=== PATIENT | male | born 1950 | race Two or more races ===

== ENCOUNTER 2020-09-02 | Inpatient (IN) | payer OTHER ==
[~2020-09-02] VITALS: Ht 182.9 cm; Wt 86.2 kg
--- NOTE | 2020-09-02 00:17 | NUR ---
PT CAME FROM HOME FOR A POSSIBLE SEIZURE WITNESSED BY IN BED. PT AAOX3, RESPIRATIONS EVEN AND UNLABORED W/ NAD NOTED. 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 SEIZURE PRECAUTIONS IN PLACE FOR SAFETY. IV LINE ESTABLISHED. BLOOD COLLECTED AND SENT TO LAB
--- NOTE | 2020-09-02 00:19 | NUR ---
EKG AT BEDSIDE
[2020-09-02 00:24] LABS: BASOPHILS # (AUTO) 0.1 /CMM (0.0-0.2); BASOPHILS % (AUTO) 0.9 % (0.0-2.0); EOSINOPHILS % (AUTO) 4.3 % (0.0-6.0); HEMATOCRIT 37 % (39-51); HEMOGLOBIN 12.8 g/dL (13.5-17.5); LYMPHOCYTES # (AUTO) 3.5 /CMM (0.8-4.8); LYMPHOCYTES % (AUTO) 35.5 % (20.0-44.0); MEAN CORPUSCULAR HGB CONC 34 g/dl (31.0-36.0); MEAN CORPUSCULAR VOLUME 92 fL (80-96); MONOCYTES % (AUTO) 9.9 % (2.0-12.0); NEUTROPHILS # (AUTO) 4.9 /CMM (1.8-8.9); NEUTROPHILS % (AUTO) 49.4 % (43.0-81.0); PLATELET COUNT (AUTO) 240 /CMM (150-450); RED BLOOD CELL COUNT(AUTO) 4.05 MIL/uL (4.5-6.0)
[2020-09-02] MEDS ORDERED: IV NS 0.9% 500 ML BAG IV ONE (00:30)
--- NOTE | 2020-09-02 00:45 | NUR ---
PT TAKEN TO RADIOLOGY FOR CT
--- NOTE | 2020-09-02 00:50 | NUR ---
PT BACK FROM RADIOLOGY
[2020-09-02 01:10] LABS: CALCIUM, SERUM 9.1 mg/dL (8.5-10.1); CARBON DIOXIDE 22 mmol/L (21-32); CHLORIDE 99 mmol/L (98-107); CREATININE 1.2 mg/dL (0.6-1.3); GLUCOSE 116 mg/dL (74-106); POTASSIUM 3.7 mmol/L (3.5-5.1); SODIUM SERUM 136 mmol/L (136-145); UREA NITROGEN, BLOOD 19 mg/dL (7-18)
[2020-09-02 01:15] LABS: ALANINE AMINOTRANSFERASE 23 U/L (12-78); ALBUMIN 4.1 g/dL (3.4-5.0); ALCOHOL, BLOOD < 3 mg/dL (0-0); ALKALINE PHOSPHATASE 83 U/L (46-116); ASPARTATE AMINOTRANSFERASE 26 U/L (15-37); BILIRUBIN,DIRECT 0.2 mg/dL (0.0-0.2); BILIRUBIN,TOTAL 0.9 mg/dL (0.2-1.0); TOTAL PROTEIN, SERUM 7.8 g/dL (6.4-8.2)
--- NOTE | 2020-09-02 01:30 | NUR ---
COVID NEGATIVE PER LAB
--- NOTE | 2020-09-02 02:22 | NUR ---
tele [phone]
[2020-09-02] MEDS ORDERED: MAGNESIUM HYDROXIDE 30 ML UDC PO PRN (02:30)
[2020-09-02] MEDS ORDERED: Z GUARD REMEDY 2 OZ OINT TP PRN (02:30)
[2020-09-02] MEDS ORDERED: LEVETIRACETAM (500MG) 500 MG in IV NS 0.9% 100 ML IV SCH ×2 (02:30→16:00)
[2020-09-02] MEDS ORDERED: LEVETIRACETAM (500MG) 1,000 MG in IV NS 0.9% 100 ML IV SCH (02:30)
[2020-09-02] MEDS ORDERED: ONDANSETRON HCL/PF 4 MG/2 ML VIAL IVP PRN (02:30)
[2020-09-02] MEDS ORDERED: MAG HYDROX/AL HYDROX/SIMETH 30 ML UDC PO PRN (02:30)
[2020-09-02] MEDS ORDERED: hydrALAZINE HCL IV 20 MG VIAL IV PRN (02:30)
[2020-09-02] MEDS ORDERED: LORAZEPAM INJ 2 MG/ML VIAL IV PRN (02:30)
--- NOTE | 2020-09-02 02:33 | NUR ---
REPORT GIVEN TO KATI ON FIRST FLOOR
[2020-09-02 02:55] LABS: BILIRUBIN,URINE NEGATIVE (NEGATIVE); COLOR,URINE YELLOW (YELLOW); LEUKOCYTE ESTERASE ,URINE NEGATIVE (NEGATIVE); NITRITE, URINE NEGATIVE (NEGATIVE); PROTEIN,URINE NEGATIVE (NEGATIVE); UGLUCOSE NEGATIVE (NEGATIVE); UROBILINOGEN,URINE 0.2 EU/dL (0.2)
--- NOTE | 2020-09-02 02:55 | NUR ---
ADMIT NOTE RECEIVED PATIENT FROM ER, TRANSFERRED TO ROOM 108 VIA GURNEY. ALERT AND ORIENTED X 3 WITH PERIODS OF FORGETFULNESS. ABLE TO MAKE NEEDS KNOWN. NO SOB OR ANY RESPIRATORY DISTRESS. ON ROOM AIR, O2 SAT 96%. CONNECTED TO TELE MONITOR, HR 80'S A-FIB. IV ACCESS ON LEFT AC #18, PATENT AND INTACT. SKIN IS CLEAN AND INTACT. ALL BELONGINGS CHECKED. BED LOCKED AND IN LOWEST POSITION. CALL LIGHT WITHIN REACH. SAFETY MEASURES IN PLACE. PATIENT IN BED RESTING COMFORTABLY.
--- NOTE | 2020-09-02 02:58 | NUR ---
PT TRANSFERRED TO ROOM VIA ACLS PROTCOCOL
[2020-09-02 02:59] VITALS: BP 163/76
[2020-09-02 03:00] LABS: BACTERIA,URINE None seen /HPF (None Seen); SQUAMOUS EPITHELIAL CELL,UR Rare /HPF (None Seen); URINE AMORPHOUS URATE Few /HPF (None Seen); WBC,URINE 0-2 /HPF (0-3)
[2020-09-02] MEDS: IV NS 0.9% 1,000 ML IV PRN ×2 (03:00→21:46)
--- NOTE | 2020-09-02 03:50 | NUR ---
NOTIFIED YOLANDA SERNA NEW ADMIT PATIENT AND RECEIVED CLARIFICATION ORDERS FOR HEYDI, NOTED AND CARRIED OUT. NAZ CHARGE NURSE AWARE.
[2020-09-02 04:00] VITALS: BP 108/64
[2020-09-02] MEDS ORDERED: LEVETIRACETAM (500MG) 1,000 MG in IV NS 0.9% 100 ML IV ONE (04:00)
[2020-09-02] MEDS ORDERED: LEVETIRACETAM (500MG) 500 MG/5 ML VIAL IV ONE (04:03)
[2020-09-02] MEDS ORDERED: LOSA1TAB42 PO (04:04)
[2020-09-02] MEDS ORDERED: ATOR20TA PO (04:05)
[2020-09-02] MEDS ORDERED: AMLO-212 PO (04:06)
[2020-09-02] MEDS: ACETAMINOPHEN 325 MG TABLET PO PRN ×2 (04:22→21:46)
[2020-09-02 06:26] LABS: BASOPHILS # (AUTO) 0.1 /CMM (0.0-0.2); BASOPHILS % (AUTO) 0.5 % (0.0-2.0); EOSINOPHILS % (AUTO) 0.7 % (0.0-6.0); HEMATOCRIT 34 % (39-51); HEMOGLOBIN 11.7 g/dL (13.5-17.5); LYMPHOCYTES # (AUTO) 0.9 /CMM (0.8-4.8); LYMPHOCYTES % (AUTO) 8.9 % (20.0-44.0); MEAN CORPUSCULAR HGB CONC 34 g/dl (31.0-36.0); MEAN CORPUSCULAR VOLUME 92 fL (80-96); MONOCYTES # (AUTO) 0.9 /CMM (0.1-1.30); MONOCYTES % (AUTO) 9.1 % (2.0-12.0); NEUTROPHILS # (AUTO) 8.2 /CMM (1.8-8.9); NEUTROPHILS % (AUTO) 80.8 % (43.0-81.0); PLATELET COUNT (AUTO) 218 /CMM (150-450); RED BLOOD CELL COUNT(AUTO) 3.75 MIL/uL (4.5-6.0); WHITE BLOOD COUNT (AUTO) 10.1 K/uL (4.3-11.0)
--- NOTE | 2020-09-02 06:49 | NUR ---
RN NOTE PATIENT ALERT AND ORIENTED X 3. ABLE TO MAKE NEEDS KNOWN. NO SOB OR ANY RESPIRATORY DISTRESS. ON ROOM AIR, O2 SAT 96%. ON TELE, HR 80'S. IV ACCESS ON LEFT AC #18, PATENT AND INTACT RUNNING IV NS @ 50ML/HR. BED LOCKED AND IN LOWEST POSITION. CALL LIGHT WITHIN REACH. SAFETY MEASURES IN PLACE. WILL ENDORSE TO AM SHIFT.
[2020-09-02 06:53] LABS: ALBUMIN 3.4 g/dL (3.4-5.0); BILIRUBIN,TOTAL 0.8 mg/dL (0.2-1.0); CALCIUM, SERUM 8.6 mg/dL (8.5-10.1); MAGNESIUM 2.2 mg/dL (1.8-2.4); PHOSPHORUS 3.3 mg/dL (2.5-4.9); POTASSIUM 3.9 mmol/L (3.5-5.1); TOTAL PROTEIN, SERUM 6.6 g/dL (6.4-8.2)
[2020-09-02 07:07] LABS: THYROID STIMULATING HORMONE 1.918 uIU/mL (0.358-3.74)
--- NOTE | 2020-09-02 07:30 | NUR ---
RN OPENING NOTES Patient is alert and oriented. Patient is breathing even and unlabored.No c.o pain or discomfort. Left ac 18 gauze running at 50 ml./hour. Patient is on room air saturating 97%. Bed is in lowest and locked position. Call light with in reach.
[2020-09-02] MEDS: PANTOPRAZOLE 40 MG VIAL IV SCH (08:20)
--- NOTE | 2020-09-02 09:00 | NUR ---
Informed Dr Sim regarding patient's afib on collections director and no anticoagulants ordered and Med reconciliation.
[2020-09-02 10:00] VITALS: BP 104/50
[2020-09-02 12:00] VITALS: BP 101/50
[2020-09-02] MEDS: AMLODIPINE BESYLATE 5 MG TABLET PO SCH (13:00)
[2020-09-02] MEDS: APIXABAN 5 MG TABLET PO SCH ×2 (13:39→17:19)
[2020-09-02 16:00] VITALS: BP 100/50
--- NOTE | 2020-09-02 16:50 | NUR ---
Informed Dr Sim regarding patient's heart rhythm converting from afib to sinus and bradycardic at 35 bpm at one time to 55 bpm consistently. Patient is asymptomatic and arouses easily to name. No new orders received from MD.
[2020-09-02] MEDS: METOPROLOL TARTRATE 25 MG TABLET PO SCH (18:10)
--- NOTE | 2020-09-02 19:01 | NUR ---
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 Patient is breathing even and unlabored.No c.o pain or discomfort. Left ac 18 gauze running at 50 ml /hour. Patient is on room air saturating 98%. Bed is in lowest and locked position. Call light with in reach.Will endorse to next shift for genevieve.
[2020-09-02 20:00] VITALS: BP 104/55
--- NOTE | 2020-09-02 21:33 | NUR ---
rn notes. initial assessment, received the pt rest on the bed. awake, alert. follow commands. monitor worker showing s deanna. pt on room air. sat 98%.o acute distress noted. iv lt ac 18g. ivf ns @ 50 ml/h. hob elevated. afebrile. no seizure activity noted. will continue to monitor. seizure precaution initiated
[2020-09-02] MEDS: LEVETIRACETAM (500MG) 500 MG in IV NS 0.9% 100 ML IV SCH (21:45)
--- NOTE | 2020-09-02 22:12 | NUR ---
rn note. pt c/o leg pain{ arthritis } tylenol given per md ordered
[2020-09-03] VITALS: BP 129/50
--- NOTE | 2020-09-03 00:59 | NUR ---
rn note. no changes. will continue to monitor
[2020-09-03 04:00] VITALS: BP 122/55
--- NOTE | 2020-09-03 04:14 | NUR ---
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 remaining same ivf running. a febrile. hob elevated. during shift no seizure activity noted
[2020-09-03 06:31] LABS: BASOPHILS # (AUTO) 0.1 /CMM (0.0-0.2); BASOPHILS % (AUTO) 0.9 % (0.0-2.0); EOSINOPHILS % (AUTO) 2.5 % (0.0-6.0); HEMATOCRIT 34 % (39-51); HEMOGLOBIN 11.5 g/dL (13.5-17.5); LYMPHOCYTES # (AUTO) 1.4 /CMM (0.8-4.8); LYMPHOCYTES % (AUTO) 18.6 % (20.0-44.0); MEAN CORPUSCULAR HGB CONC 34 g/dl (31.0-36.0); MEAN CORPUSCULAR VOLUME 93 fL (80-96); MONOCYTES # (AUTO) 0.9 /CMM (0.1-1.30); MONOCYTES % (AUTO) 12.6 % (2.0-12.0); NEUTROPHILS # (AUTO) 4.8 /CMM (1.8-8.9); NEUTROPHILS % (AUTO) 65.4 % (43.0-81.0); PLATELET COUNT (AUTO) 208 /CMM (150-450); RED BLOOD CELL COUNT(AUTO) 3.68 MIL/uL (4.5-6.0); WHITE BLOOD COUNT (AUTO) 7.4 K/uL (4.3-11.0)
[2020-09-03 06:58] LABS: CALCIUM, SERUM 8.6 mg/dL (8.5-10.1); CREATININE 0.9 mg/dL (0.6-1.3); MAGNESIUM 2.2 mg/dL (1.8-2.4); PHOSPHORUS 3.5 mg/dL (2.5-4.9); POTASSIUM 3.6 mmol/L (3.5-5.1)
--- NOTE | 2020-09-03 07:30 | NUR ---
RN OPENING NOTES Patient is alert and oriented. Patient is breathing even and unlabored.No c.o pain or discomfort. Left ac 18 gauze running at 50 ml./hour. Patient is on room air saturating 99%. Bed is in lowest and locked position. Call light with in reach.
[2020-09-03 08:00] VITALS: BP 102/58
[2020-09-03] MEDS: AMLODIPINE BESYLATE 5 MG TABLET PO SCH (09:00)
[2020-09-03] MEDS ORDERED: LOSARTAN POTASSIUM 50 MG TABLET PO SCH (09:00)
[2020-09-03] MEDS ORDERED: ATORVASTATIN 10 MG TABLET PO SCH (09:00)
[2020-09-03] MEDS ORDERED: HYDROCHLOROTHIAZIDE 25 MG TABLET PO SCH (09:00)
[2020-09-03] MEDS: METOPROLOL TARTRATE 25 MG TABLET PO SCH (09:00)
[2020-09-03] MEDS: PANTOPRAZOLE 40 MG VIAL IV SCH (09:08)
[2020-09-03] MEDS: LEVETIRACETAM (500MG) 500 MG in IV NS 0.9% 100 ML IV SCH (09:23)
--- NOTE | 2020-09-03 10:00 | NUR ---
Per neurologist Sailaja patient to continue keppra. MD Sim aware. Patient evaluated by PT in house and case management aware for HH with PT.
[2020-09-03] MEDS ORDERED: LEVE500T9 PO (10:55)
[2020-09-03 12:00] VITALS: BP 106/80
--- NOTE | 2020-09-03 12:58 | NUR ---
DISCHARGE NOTE Patient is alert and oriented. Patient is breathing even and unlabored.No c.o pain or discomfort. Left ac 18 gauze IV ACCESS discontinued. All education material provided and teaching done. Patient and son marti verbalized understanding regarding SUBSTANCE ABUSE. Patient provided FWW and educated regarding safety and fall precautions. Patient teaching done regarding medications and new prescription Keppra. Patient transported by son in private car
== END 2020-09-03 12:42 | disposition home health service (06) | DRG 101 ==
LOC: ER 00:02 → TELE1 02:24
PROVIDERS: ADMIT Internal Medicine; ATTEND Internal Medicine
DX: G40.909 Epilepsy, unspecified, not intractable, without status epilepticus (principal); D68.59 Other primary thrombophilia; Z20.822 Contact with and (suspected) exposure to COVID-19; D63.8 Anemia in other chronic diseases classified elsewhere; I10 Essential (primary) hypertension; Z79.899 Other long term (current) drug therapy; I48.91 Unspecified atrial fibrillation
CPT/HCPCS: 36415; 70450-TC; 70551-TC; 71045-TC; 80048-TC; 80053-TC; 80061-TC; 80076-TC; 81001; 82728-TC; 82962-TC; 83540-TC; 83735-TC; 84100-TC; 84443-TC; 84484-TC; 85025-TC; 87081-TC; 95819-TC; 97116-TC; 97530-TC; C9113; C9803; G0378; G0480; J1953; J7030; J7040

== ENCOUNTER 2021-01-26 03:04 | Emergency (ER) | payer OTHER ==
[~2021-01-26] VITALS: Ht 188 cm; Wt 90.7 kg
[~2021-01-26 03:04] MED LIST: AMLO-212 PO; ATOR20TA PO; LEVE500T9 PO; LOSA1TAB42 PO
--- NOTE | 2021-01-26 03:15 | NUR ---
PATIENT BIBRA 62 FROM HOME C/O POSSIBLE SEIZURE WHITNESSED BY SON. PATIENT IS A/OX 2-3, RR EVEN AND UNLABORED, NO SOB NOTED. PATIENT CONNECTED TO MEDICAL STAFF MANAGER AND POX.
--- NOTE | 2021-01-26 03:20 | NUR ---
PT TAKEN TO CT
[2021-01-26] MEDS ORDERED: LEVETIRACETAM (500MG) 1,000 MG in IV NS 0.9% 100 ML IV SCH (03:30)
--- NOTE | 2021-01-26 03:30 | NUR ---
PT SON AT BEDSIDE
[2021-01-26] MEDS ORDERED: LEVETIRACETAM (500MG) 500 MG/5 ML VIAL IV ONE (03:33)
[2021-01-26 03:39] LABS: BASOPHILS # (AUTO) 0.1 K/uL (0.0-0.2); BASOPHILS % (AUTO) 0.8 % (0.0-2.0); EOSINOPHILS % (AUTO) 4.1 % (0.0-6.0); HEMATOCRIT 38 % (39-51); HEMOGLOBIN 12.7 g/dL (13.5-17.5); LYMPHOCYTES # (AUTO) 2.9 K/uL (0.8-4.8); LYMPHOCYTES % (AUTO) 32.9 % (20.0-44.0); MEAN CORPUSCULAR HGB CONC 34 g/dl (31.0-36.0); MEAN CORPUSCULAR VOLUME 91 fL (80-96); MONOCYTES # (AUTO) 0.9 K/uL (0.1-1.30); MONOCYTES % (AUTO) 10.5 % (2.0-12.0); NEUTROPHILS # (AUTO) 4.6 K/uL (1.8-8.9); NEUTROPHILS % (AUTO) 51.7 % (43.0-81.0); PLATELET COUNT (AUTO) 257 K/uL (150-450); RED BLOOD CELL COUNT(AUTO) 4.11 MIL/uL (4.5-6.0)
[2021-01-26 03:55] LABS: ALANINE AMINOTRANSFERASE 22 U/L (12-78); ALBUMIN 3.8 g/dL (3.4-5.0); ALKALINE PHOSPHATASE 106 U/L (46-116); ASPARTATE AMINOTRANSFERASE 17 U/L (15-37); BILIRUBIN,DIRECT 0.1 mg/dL (0.0-0.2); BILIRUBIN,TOTAL 0.6 mg/dL (0.2-1.0); CALCIUM, SERUM 8.3 mg/dL (8.5-10.1); CARBON DIOXIDE 27 mmol/L (21-32); CHLORIDE 98 mmol/L (98-107); CREATININE 1.3 mg/dL (0.6-1.3); GLUCOSE 128 mg/dL (74-106); POTASSIUM 3.5 mmol/L (3.5-5.1); SODIUM SERUM 134 mmol/L (136-145); TOTAL PROTEIN, SERUM 7.4 g/dL (6.4-8.2); UREA NITROGEN, BLOOD 15 mg/dL (7-18)
[2021-01-26 04:34] LABS: ALCOHOL, BLOOD < 3 mg/dL (0-0)
[2021-01-26] MEDS ORDERED: LEVE500T9 PO (05:15)
--- NOTE | 2021-01-26 05:22 | NUR ---
Patient discharged to home in stable condition. Rx and Written and verbal after care instructions given. Patient verbalizes understanding of instruction.
[2021-01-26 05:24] VITALS: BP 131/59
== END 2021-01-26 05:24 | disposition home or self-care (01) ==
LOC: ER 03:06
DX: G40.909 Epilepsy, unspecified, not intractable, without status epilepticus (principal); D64.9 Anemia, unspecified; I10 Essential (primary) hypertension; E78.5 Hyperlipidemia, unspecified; I48.91 Unspecified atrial fibrillation; Z79.899 Other long term (current) drug therapy
CPT/HCPCS: 36415; 70450; 71045; 80048; 80076; 80307; 80320; 82962; 83735; 85025; 85730; 93005; 96365; 99285; J1953 ×2; J7030 ×2; G0480